=== PATIENT | male | born 1970 | race African-American/Black ===

== ENCOUNTER 2016-11-07 22:31 | Observation (INO) | payer SELFPAY ==
[~2016-11-07] VITALS: Ht 172.7 cm; Wt 65.0 kg
[2016-11-07 22:33] VITALS: BP 136/64; PULSE 100; RESP 16; TEMP 98.2; O2SAT 94
[2016-11-07] MEDS ORDERED: ASPIRIN 325 MG TAB PO ONE (23:30)
[2016-11-07] MEDS ORDERED: SODIUM CHLORID 0.9% 500 ML INJ 500 ML IV ONE (23:30)
[2016-11-07] MEDS ORDERED: MORPHINE SULFATE 4 MG/ML INJ IV PUSH ONE (23:30)
[2016-11-07 23:32] LABS: AUTOMATED NEUTROPHIL # 4.7 TH/MM3 (1.8-7.7); BASOPHIL # 0.1 TH/MM3 (0-0.2); EOSINOPHIL # 0.1 TH/MM3 (0-0.4); EOSINOPHIL % 1.1 % (0.0-4.0); HEMO FLAGS DIFF FINAL; LYMPH % 37.2 % (9.0-44.0); LYMPHOCYTE # 3.2 TH/MM3 (1.0-4.8); MEAN CELL VOLUME 93.9 FL (80.0-100.0); MEAN CORPUSCULAR HEMOGLOBIN 31.9 PG (27.0-34.0); MONO % 6.4 % (0.0-8.0); NEUT % 54.3 % (16.0-70.0); PLATELET COUNT 337 TH/MM3 (150-450); RED BLOOD COUNT 3.72 MIL/MM3 (4.50-5.90); RED CELL DISTRIBUTION WIDTH 13.3 % (11.6-17.2); WHITE BLOOD COUNT 8.6 TH/MM3 (4.0-11.0)
[2016-11-07 23:37] LABS: APTT (PATIENT) 27.6 SEC (24.3-30.1); PROTHROMBIN TIME - PATIENT 10.6 SEC (9.8-11.6)
[2016-11-07] MEDS: NITROGLYCERIN 0.4 MG SL 25 TABS/BTL SL SCH ×2 (23:39)
[2016-11-07 23:48] LABS: ANION GAP 11 MEQ/L (5-15); BICARBONATE 26.5 MEQ/L (21.0-32.0); BLOOD UREA NITROGEN 11 MG/DL (7-18); CHLORIDE 105 MEQ/L (98-107); CREATINE KINASE 256 U/L (39-308); GLOMERULAR FILTRATION RATE 105 ML/MIN (>89); MAGNESIUM 2.1 MG/DL (1.5-2.5); POTASSIUM 3.6 MEQ/L (3.5-5.1); SODIUM (NA) 142 MEQ/L (136-145)
[2016-11-08] VITALS (7 sets, daily range): BP systolic 107–124; BP diastolic 53–71; PULSE 70–81; RESP 14–20; O2SAT 95–99
[2016-11-08] LABS: CKMB 2.2 NG/ML (0.5-3.6)
--- NOTE | 2016-11-08 00:10 | RADRPT ---
EXAM DATE/TIME: 11/08/2016 00:06 [facility] COMPARISON: No previous studies available for comparison. INDICATIONS : Chest pain MEDICAL HISTORY : None. SURGICAL HISTORY : ENCOUNTER: Initial ACUITY: 1 day PAIN SCORE: 5/10 LOCATION: Bilateral chest FINDINGS: A single view of the chest demonstrates the lungs to be symmetrically aerated without evidence of mas s, infiltrate or effusion. The cardiomediastinal contours are unremarkable. There is moderate dextroconvex curvature of the thoracic spine centered around T9. CONCLUSION: No evidence of acute cardiopulmonary disease. Moderate dextroconvex scoliosis of the thoracic spine. Fredi Olivares MD on November 08, 2016 at 0:06 Board Certified Radiologist. This report was verified electronically.
[2016-11-08] MEDS: NITROGLYCERIN 0.4 MG SL 25 TABS/BTL SL SCH (00:48)
--- NOTE | 2016-11-08 00:53 | PD ---
HPI Chief Complaint: Chest Pain Time Seen by Provider: 23:07 Travel History International Travel<30 days: No Contact w/Intl Traveler<30days: No Traveled to known affect area: No History of Present Illness HPI Patient's 46 years old. He arrives with chest pain. Severity 03/17. He sat up for about 3-1/2 hours. The onset occurred while he was driving. Location is left chest and left upper extremity. He also feels it in the left upper back. He's had a fever intermittently for the past by Darvocet. He denies cough. He denies recent viral illness. His father had a coronary event at age 58. The patient smokes. He denies hypertension diabetes hyperlipidemia. He has no outside follow-up. He denies a history of catheterization or stress test. [facility] Social History Tobacco Use: Yes Allergies-Medications (Allergen,Severity, Reaction): Coded Allergies: Tylenol (Verified Allergy, Unknown, 11/07/16) Reported Meds & Prescriptions Reported Meds & Active Scripts Active No Active Prescriptions or Reported Medications Review of Systems Except as stated in HPI: all other systems reviewed are Neg Physical Exam Narrative GENERAL: 46-year-old male pleasant SKIN: Warm and dry. HEAD: Atraumatic. Normocephalic. EYES: Pupils equal and round. No scleral icterus. No injection or drainage. ENT: No nasal bleeding or discharge. Mucous membranes pink and moist. NECK: Trachea midline. No JVD. CARDIOVASCULAR: Regular rate and rhythm. No murmur appreciated. RESPIRATORY: No accessory muscle use. Clear to auscultation. Breath sounds equal bilaterally. GASTROINTESTINAL: Abdomen soft, non-tender, nondistended. Hepatic and splenic margins not palpable. MUSCULOSKELETAL: No obvious deformities. No clubbing. No cyanosis. No edema. NEUROLOGICAL: Awake and alert. No obvious cranial nerve deficits. Motor grossly within normal limits. Normal speech. PSYCHIATRIC: Appropriate mood and affect; insight and judgment normal. Data Data Last Documented VS Vital Signs Date Time Temp Pulse Resp B/P Pulse Ox O2 Delivery O2 Flow Rate FiO2 11/08/16 00:47 79 15 124/71 95 11/07/16 22:33 98.2 Orders Electrocardiogram (11/07/16 22:42) Basic Metabolic Panel (Bmp) (11/07/16 23:11) Ckmb (Isoenzyme) Profile (11/07/16 23:11) Complete Blood Count With Diff (11/07/16 23:11) Magnesium (Mg) (11/07/16 23:11) Prothrombin Time / Inr (Pt) (11/07/16 23:11) Act Partial Throm Time (Ptt) (11/07/16 23:11) Troponin I (11/07/16 23:11) Chest, Single Ap (11/07/16 23:11) Ecg Monitoring (11/07/16 23:11) Iv Access Insert/Monitor (11/07/16 23:11) Oximetry (11/07/16 23:11) Oxygen Administration (11/07/16 23:11) Westergren Sedimentation Rate (11/07/16 23:11) Aspirin (Aspirin) (11/07/16 23:30) Morphine Inj (Morphine Inj) (11/07/16 23:30) Nitroglycerin Sl (Nitrostat Sl) (11/07/16 23:30) Sodium Chlorid 0.9% 500 Ml Inj (Ns 500 M (11/07/16 23:30) CKMB (11/07/16 23:20) CKMB% (11/07/16 23:20) Activity Bed Rest With Brp (11/08/16 00:49) Vital Signs (Adult) Q4H (11/08/16 00:49) Cardiac Rhythm .As Directed (11/08/16 00:49) ^ Notify Dr: Other .PRN (11/08/16 00:49) ^ Notify Dr. Parameters (11/08/16 00:49) Resp Oxygen Nasal Cannula (11/08/16 ) Ckmb (Isoenzyme) Profile (11/08/16 00:49) Ckmb (Isoenzyme) Profile (11/08/16 03:49) Troponin I (11/08/16 00:49) Troponin I (11/08/16 03:49) Electrocardiogram (11/08/16 00:49) Electrocardiogram (11/08/16 03:49) ^ Obtain (11/08/16 00:49) Sodium Chloride 0.9% Flush (Ns Flush) (11/08/16 01:00) Sodium Chloride 0.9% Flush (Ns Flush) (11/08/16 09:00) Morphine Inj (Morphine Inj) (11/08/16 01:00) Ondansetron Inj (Zofran Inj) (11/08/16 01:00) Nitroglycerin Sl (Nitrostat Sl) (11/08/16 01:00) Aspirin (Aspirin) (11/08/16 09:00) Temazepam (Restoril) (11/08/16 01:00) Alprazolam (Xanax) (11/08/16 01:00) Chart Collector / Telemetry EMI.Q8H (11/08/16 00:49) Admit Order (Ed Use Only) (11/08/16 00:49) CKMB (11/08/16 01:50) CKMB% (11/08/16 01:50) Labs Laboratory Tests Test 11/07/16 23:20 White Blood Count 8.6 TH/MM3 Red Blood Count 3.72 MIL/MM3 Hemoglobin 11.9 GM/DL Hematocrit 35.0 % Mean Corpuscular Volume 93.9 FL Mean Corpuscular Hemoglobin 31.9 PG Mean Corpuscular Hemoglobin 34.0 % Concent Red Cell Distribution Width 13.3 % Platelet Count 337 TH/MM3 Mean Platelet Volume 7.4 FL Neutrophils (%) (Auto) 54.3 % Lymphocytes (%) (Auto) 37.2 % Monocytes (%) (Auto) 6.4 % Eosinophils (%) (Auto) 1.1 % Basophils (%) (Auto) 1.0 % Neutrophils # (Auto) 4.7 TH/MM3 Lymphocytes # (Auto) 3.2 TH/MM3 Monocytes # (Auto) 0.6 TH/MM3 Eosinophils # (Auto) 0.1 TH/MM3 Basophils # (Auto) 0.1 TH/MM3 CBC Comment DIFF FINAL Differential Comment Prothrombin Time 10.6 SEC Prothromb Time International 1.0 RATIO Ratio Activated Partial 27.6 SEC Thromboplast Time Erythrocyte Sedimentation Rate 14 mm/hr Sodium Level 142 MEQ/L Potassium Level 3.6 MEQ/L Chloride Level 105 MEQ/L Carbon Dioxide Level 26.5 MEQ/L Anion Gap 11 MEQ/L Blood Urea Nitrogen 11 MG/DL Creatinine 0.79 MG/DL Estimat Glomerular Filtration 105 ML/MIN Rate Random Glucose 85 MG/DL Calcium Level 8.2 MG/DL Magnesium Level 2.1 MG/DL Total Creatine Kinase 256 U/L Creatine Kinase MB 2.2 NG/ML Troponin I LESS THAN 0.02 NG/ML MDM Medical Decision Making Medical Screen Exam Complete: Yes Emergency Medical Condition: Yes Medical Record Reviewed: Yes Differential Diagnosis NSTEMI, unstable angina, coronary vasospasm, PE, PTX, aortic dissection, pericarditis, myocarditis, endocarditis, PNA, esophageal disease, aneurysm, musculoskeletal etiologies, anxiety, cocaine/sympathomimetic abuse Narrative Course CBC & BMP Diagram 11/07/16 23:20 Tn < 0.02 Coags normal Last 24 hours Impressions Chest X-Ray 11/07/16 2311 Signed Impressions: Service Date/Time: Tuesday, November 08, 2016 00:06 - CONCLUSION: No evidence of acute cardiopulmonary disease. Moderate dextroconvex scoliosis of the thoracic spine. Fredi Olivares MD EKG: sinus, diffuse non-specific ST elevation Chest pain center protocol considered appropriate. Diagnosis Primary Impression: Chest pain Qualified Code: R07.9 - Chest pain, unspecified type Scripts No Active Prescriptions or Reported Meds Denny Arora MD Nov 08, 2016 00:53
[2016-11-08] MEDS ORDERED: SODIUM CHLORIDE 0.9% FLUSH 5 ML FLUSH IVF PRN (01:00)
[2016-11-08] MEDS ORDERED: NITROGLYCERIN 0.4 MG SL 25 TABS/BTL SL PRN (01:00)
[2016-11-08] MEDS ORDERED: ALPRAZolam 0.25 MG TAB PO PRN (01:00)
[2016-11-08] MEDS ORDERED: TEMAZEPAM 15 MG CAP PO PRN (01:00)
[2016-11-08] MEDS ORDERED: ONDANSETRON HCL 4 MG/2 ML VIAL IV PRN (01:00)
[2016-11-08] MEDS: MORPHINE SULFATE 4 MG/ML INJ IV PRN ×2 (02:00→08:36)
[2016-11-08 02:29] LABS: CREATINE KINASE 216 U/L (39-308)
[2016-11-08 02:41] LABS: CKMB 1.4 NG/ML (0.5-3.6)
[2016-11-08 04:12] LABS: CREATINE KINASE 204 U/L (39-308)
[2016-11-08] MEDS ORDERED: SODIUM CHLORIDE 0.9% FLUSH 5 ML FLUSH IVF SCH (09:00)
[2016-11-08] MEDS ORDERED: ASPIRIN 325 MG TAB PO SCH (09:00)
[2016-11-08] MEDS ORDERED: KETOROLAC TROMETHAMINE 30 MG/ML (IVP) VIAL IVP ONE (09:00)
--- NOTE | 2016-11-08 10:17 | PD.AMA ---
Against Medical Advice Note AMA Statement Patient Sayra Jung has decided to leave the hospital against medical advice. This patient has the capacity to refuse care and understands the risks of leaving, including permanent disability and/or , and has had an opportunity to ask questions about his condition. The patient has been informed that he may return for care at any time, and follow up has been arranged/ advised. Claudio Del Toro Nov 08, 2016 10:17
--- NOTE | 2016-11-08 11:59 | MH ---
cc: WILLIE SANTAMARIA MD DATE OF ADMISSION: 11/08/2016 DATE OF 1970 CHIEF COMPLAINT Chest pain HISTORY OF PRESENT ILLNESS This is a 46-year-old male who presents to the ED via private complaining of left-sided discomfort in his chest for five hours. He was initially short of breath. No discomfort with inspiration. It is not positional. It is not exertional. He found nothing really to worsen or improve. He states he was a hospital a couple of weeks ago, but left without further treatment. He did not agree with what they were doing. Currently denies chest comfort. PAST MEDICAL HISTORY 1. Denies hypertension, hyperlipidemia, diabetes and CAD. 2. He does have tobacco abuse. FAMILY HISTORY He denies a family history of CAD. SOCIAL HISTORY The patient smokes one-half packs of cigarettes daily for more than 30 years. Denies alcohol or illicit drugs. PAST SURGICAL HISTORY Noncontributory ALLERGIES TYLENOL CAUSING A RASH. MEDICATIONS Denies REVIEW OF SYSTEMS GENERAL: Denies fevers or chills. Denies recent illness. HEENT: She denies headache, earache, sore throat or difficulty swallowing. CARDIOVASCULAR: Describes the discomfort as mentioned above. Denies diaphoresis. Denies sensation of heart beating rapidly or irregularly. Denies syncope. RESPIRATORY: He was a little short of breath initially. No inspirational chest discomfort. Denies coughing, wheezing or hemoptysis. GI: Denies nausea, vomiting, diarrhea, abdominal pain or blood in stool. MUSCULOSKELETAL: Denies joint pain or edema. Denies calf pain or edema. NEUROVASCULAR: Denies headache or dizziness. ENDOCRINE: Denies polyuria or polydipsia. HEMATOLOGIC: Denies easy bruising. SKIN: Denies rash or itching. PHYSICAL EXAMINATION VITAL SIGNS: In the emergency department initially include a blood pressure of 136/64, heart rate 100, respiration 16, pulse oximetry 94% on room air and he was afebrile. Most recent vital signs include a blood pressure 107/62, heart rate 70 respirations 20, pulse oximetry 95% on room air. GENERAL: The patient seen in the examination room in no apparent distress. He is very pleasant. He speaks in clear and sentences. HEENT: Head is atraumatic and normocephalic. NECK: Supple without lymphadenopathy. Trachea is midline. No JVD or carotid bruits. CARDIOVASCULAR: Regular rate and rhythm without gallop or rub. There is a grade 2 systolic murmur left sternal border. RESPIRATORY: Lungs are clear to auscultation bilaterally. No wheezing, rales or rhonchi. No reproducible chest wall discomfort. No use of accessory muscles. GI: Abdomen is nontender and nondistended. Bowel sounds are normal. No guarding or rebound. No obvious pulsatile mass or bruit. No CVA tenderness. Strong femoral pulses bilaterally. MUSCULOSKELETAL: Patient moving upper and lower extremity freely. No joint tenderness or edema. No calf tenderness or edema, Homans' sign. Strong pulses in the upper and lower stress. NEUROVASCULAR: The patient is alert, oriented. Cranial II-XII are grossly intact. No focal deficits and speech is clear. SKIN: No rashes. Skin turgor is normal. LABORATORY DATA CBC is essentially unremarkable. ESR is unremarkable at 14. Coagulation studies are unremarkable. A basic metabolic panel is unremarkable. Serial cardiac enzymes normal x3. Single view chest x-ray read by radiologist as no evidence of acute cardiopulmonary disease. Moderate scoliosis. EKG's have sinus rhythm with a sinus rhythm with early repolarization pattern. ASSESSMENT AND PLAN 1. Chest pain: The patient has had serial cardiac enzymes and EKG's for ruling out purposes. He has been seen by Dr. Willie Santamaria of cardiology in the chest pain center and will undergo a Lexiscan myocardial perfusion stress test and If that were to be unremarkable, he will discharged home with Instructions to follow up with a local physician. 2. Tobacco abuse: The patient has been counseled on the importance of smoking cessation. The patient is stable at this time. He is agreeable with this plan. Dictated by ALEIDA Ramsay MD BRANDON Solis/NEFTALI /11:21 AM 11:48 AM
--- NOTE | 2016-11-09 15:49 | EKG ---
Date Performed: 11/08/2016 Time Performed: 01:51:32 PTAGE: 46 years EKG: Sinus rhythm MODERATE VOLTAGE CRITERIA FOR LVH, CONSIDER NORMAL VARIANT BORDERLINE ECG INTERPRETATION BASED ON A DEFAULT AGE OF 40 YEARS PREVIOUS TRACING : 11/07/2016 23.23 DOCTOR: Conner Santamaria Interpretating Date/Time 11/09/2016 15:46:56
--- NOTE | 2016-11-09 15:49 | EKG ---
Date Performed: 11/08/2016 Time Performed: 03:10:25 PTAGE: 46 years EKG: Sinus rhythm MINIMAL VOLTAGE CRITERIA FOR LVH, CONSIDER NORMAL VARIANT BORDERLINE ECG NO PREVIOUS TRACING DOCTOR: Conner Santamaria Interpretating Date/Time 11/09/2016 15:46:47
--- NOTE | 2016-11-09 15:50 | EKG ---
Date Performed: 11/07/2016 Time Performed: 23:23:29 PTAGE: 46 years EKG: Sinus rhythm MINIMAL VOLTAGE CRITERIA FOR LVH, CONSIDER NORMAL VARIANT ST ELEVATION, PROBABLY EARLY REPOLARIZATIO N BORDERLINE ECG PREVIOUS TRACING : 11/07/2016 22.45 Since previous tracing, no significant change noted DOCTOR: Conner Santamaria Interpretating Date/Time 11/09/2016 15:47:16
--- NOTE | 2016-11-09 15:51 | EKG ---
Date Performed: 11/07/2016 Time Performed: 22:45:28 PTAGE: 46 years EKG: Sinus rhythm MINIMAL VOLTAGE CRITERIA FOR LVH, CONSIDER NORMAL VARIANT BORDERLINE ECG NO PREVIOUS TRACING DOCTOR: Conner Santamaria Interpretating Date/Time 11/09/2016 15:48:28
== END 2016-11-08 10:24 | disposition left against medical advice (07) ==
LOC: NEPE 22:31 → NEDA 11-08 00:51 → NEPGCP 11-08 05:55
PROVIDERS: ADMIT Internal Medicine Interventional Cardiology; ATTEND Internal Medicine Interventional Cardiology
DX: R07.9 Chest pain, unspecified (principal); F17.210 Nicotine dependence, cigarettes, uncomplicated; M41.9 Scoliosis, unspecified; R06.02 Shortness of breath; R01.1 Cardiac murmur, unspecified; R94.31 Abnormal electrocardiogram [ECG] [EKG]
CPT/HCPCS: 71010; 80048; 82550; 82552; 83735; 84484; 85025; 85610; 85652; 85730; 93005; 96361; 96374; 99285; G0378; J2270; J7040

== ENCOUNTER 2016-11-10 00:31 | Emergency (ER) | payer SELFPAY ==
[~2016-11-10] VITALS: Ht 170.2 cm; Wt 66.0 kg
[2016-11-10 00:35] VITALS: BP 134/84; PULSE 73; RESP 16; TEMP 98; O2SAT 96
--- NOTE | 2016-11-10 01:10 | RADRPT ---
EXAM DATE/TIME: 11/10/2016 01:00 [facility] COMPARISON: CHEST SINGLE AP, November 08, 2016, 0:06. INDICATIONS : Chest pain. MEDICAL HISTORY : None. SURGICAL HISTORY : None. ENCOUNTER: Initial ACUITY: 1 day PAIN SCORE: 4/10 LOCATION: Left chest FINDINGS: Portable AP view of the chest demonstrates a normal-sized cardiac silhouette. Lungs are underinflated . There is linear opacity in the left lower lobe that is stable. No pleural effusion, airspace consol idation, or pneumothorax is visualized. The bones and soft tissues demonstrate no acute finding. Ther e is stable dextroscoliosis of the thoracic spine. CONCLUSION: Stable chest x-ray with linear opacity in the left lower lobe most likely representing subsegmental a telectasis given the appearance. Less likely this could represent mild consolidation. Fredi Wade MD on November 10, 2016 at 1:07 Board Certified Radiologist. This report was verified electronically.
[2016-11-10 01:23] LABS: AUTOMATED NEUTROPHIL # 4.6 TH/MM3 (1.8-7.7); BASOPHIL # 0.2 TH/MM3 (0-0.2); EOSINOPHIL # 0.2 TH/MM3 (0-0.4); EOSINOPHIL % 1.9 % (0.0-4.0); HEMATOCRIT 33.6 % (39.0-51.0); HEMO FLAGS DIFF FINAL; LYMPH % 37.1 % (9.0-44.0); LYMPHOCYTE # 3.4 TH/MM3 (1.0-4.8); MEAN CELL VOLUME 93.7 FL (80.0-100.0); MEAN CORPUSCULAR HEMOGLOBIN 31.9 PG (27.0-34.0); MONO % 9.1 % (0.0-8.0); NEUT % 49.9 % (16.0-70.0); PLATELET COUNT 338 TH/MM3 (150-450); RED BLOOD COUNT 3.58 MIL/MM3 (4.50-5.90); RED CELL DISTRIBUTION WIDTH 13.1 % (11.6-17.2); WHITE BLOOD COUNT 9.3 TH/MM3 (4.0-11.0)
[2016-11-10 01:38] LABS: ANION GAP 5 MEQ/L (5-15); BICARBONATE 30.7 MEQ/L (21.0-32.0); BLOOD UREA NITROGEN 8 MG/DL (7-18); CHLORIDE 105 MEQ/L (98-107); GLOMERULAR FILTRATION RATE 151 ML/MIN (>89); POTASSIUM 3.2 MEQ/L (3.5-5.1); SODIUM (NA) 141 MEQ/L (136-145)
[2016-11-10 01:40] LABS: CREATINE KINASE 289 U/L (39-308)
[2016-11-10 05:22] VITALS: BP 134/77; PULSE 64; RESP 18; O2SAT 97
[2016-11-10] MEDS ORDERED: AZIT250T3 PO (05:37)
--- NOTE | 2016-11-10 05:37 | PD ---
HPI Chief Complaint: Chest Pain Time Seen by Provider: 05:30 Travel History International Travel<30 days: No Contact w/Intl Traveler<30days: No Traveled to known affect area: No History of Present Illness HPI 46-year-old male arrives complaining of chest pain. Onset at rest. There is radiation of left arm. Paresthesias in the left arm are reported. He was seen here yesterday for essentially same complaint of chest pain center evaluation was normal. He smokes tobacco. He has no family history of coronary artery disease. He denies a personal history of diabetes hypertension hyperlipidemia. He smokes one half pack of cigarettes per day[facility] Past Medical History Medical History: Denies Significant Hx Cardiovascular Problems: Yes Tetanus Vaccination: > 5 Years Influenza Vaccination: No Past Surgical History Surgical History: No Previous Surgery Social History Alcohol Use: No Tobacco Use: Yes (1/2 PPD) Substance Use: No Allergies-Medications (Allergen,Severity, Reaction): Coded Allergies: Tylenol (Verified Allergy, Unknown, 11/10/16) Reported Meds & Prescriptions Reported Meds & Active Scripts Active Azithromycin 250 Mg Tab 250 Mg PO DIRECTED Take 2 tabs (500 mg) on day 1 then 1 tab daily x 4 days. Review of Systems Except as stated in HPI: all other systems reviewed are Neg Physical Exam Narrative GENERAL: 46-year-old male pleasant no acute distress SKIN: Warm and dry. HEAD: Atraumatic. Normocephalic. EYES: Pupils equal and round. No scleral icterus. No injection or drainage. ENT: No nasal bleeding or discharge. Mucous membranes pink and moist. NECK: Trachea midline. No JVD. CARDIOVASCULAR: Regular rate and rhythm. No murmur appreciated. RESPIRATORY: No accessory muscle use. Clear to auscultation. Breath sounds equal bilaterally. GASTROINTESTINAL: Abdomen soft, non-tender, nondistended. Hepatic and splenic margins not palpable. MUSCULOSKELETAL: No obvious deformities. No clubbing. No cyanosis. No edema. 2+ radial artery pulses bilaterally. NEUROLOGICAL: Awake and alert. No obvious cranial nerve deficits. Motor grossly within normal limits. Normal speech. PSYCHIATRIC: Appropriate mood and affect; insight and judgment normal. Data Data Last Documented VS Vital Signs Date Time Temp Pulse Resp B/P Pulse Ox O2 Delivery O2 Flow Rate FiO2 11/10/16 05:22 64 18 134/77 97 Room Air 11/10/16 00:35 98.0 Vital signs noted Orders Electrocardiogram (11/10/16 00:42) Complete Blood Count With Diff (11/10/16 00:42) Basic Metabolic Panel (Bmp) (11/10/16 00:42) Ckmb (Isoenzyme) Profile (11/10/16 00:42) Troponin I (11/10/16 00:42) Chest, Single Ap (11/10/16 00:42) Iv Access Insert/Monitor (11/10/16 00:42) Ecg Monitoring (11/10/16 00:42) Oxygen Administration (11/10/16 00:42) Oximetry (11/10/16 00:42) CKMB (11/10/16 01:05) CKMB% (11/10/16 01:05) Labs Laboratory Tests Test 11/10/16 01:05 White Blood Count 9.3 TH/MM3 Red Blood Count 3.58 MIL/MM3 Hemoglobin 11.4 GM/DL Hematocrit 33.6 % Mean Corpuscular Volume 93.7 FL Mean Corpuscular Hemoglobin 31.9 PG Mean Corpuscular Hemoglobin 34.0 % Concent Red Cell Distribution Width 13.1 % Platelet Count 338 TH/MM3 Mean Platelet Volume 7.2 FL Neutrophils (%) (Auto) 49.9 % Lymphocytes (%) (Auto) 37.1 % Monocytes (%) (Auto) 9.1 % Eosinophils (%) (Auto) 1.9 % Basophils (%) (Auto) 2.0 % Neutrophils # (Auto) 4.6 TH/MM3 Lymphocytes # (Auto) 3.4 TH/MM3 Monocytes # (Auto) 0.8 TH/MM3 Eosinophils # (Auto) 0.2 TH/MM3 Basophils # (Auto) 0.2 TH/MM3 CBC Comment DIFF FINAL Differential Comment Sodium Level 141 MEQ/L Potassium Level 3.2 MEQ/L Chloride Level 105 MEQ/L Carbon Dioxide Level 30.7 MEQ/L Anion Gap 5 MEQ/L Blood Urea Nitrogen 8 MG/DL Creatinine 0.68 MG/DL Estimat Glomerular Filtration 151 ML/MIN Rate Random Glucose 81 MG/DL Calcium Level 8.4 MG/DL Total Creatine Kinase 289 U/L Creatine Kinase MB 2.0 NG/ML Troponin I LESS THAN 0.02 NG/ML MDM Medical Decision Making Medical Screen Exam Complete: Yes Emergency Medical Condition: Yes Medical Record Reviewed: Yes Differential Diagnosis NSTEMI, unstable angina, coronary vasospasm, PE, PTX, aortic dissection, pericarditis, myocarditis, endocarditis, PNA, esophageal disease, aneurysm, musculoskeletal etiologies, anxiety, cocaine/sympathomimetic abuse Narrative Course CBC & BMP Diagram 11/10/16 01:05 Tn < 0.02 Last 24 hours Impressions Chest X-Ray 11/10/16 0042 Signed Impressions: Service Date/Time: Thursday, November 10, 2016 01:00 - CONCLUSION: Stable chest x-ray with linear opacity in the left lower lobe most likely representing subsegmental atelectasis given the appearance. Less likely this could represent mild consolidation. Fredi Wade MD The patient is resting comfortably and feels better, is alert and in no distress. The patients results and examination findings were discussed. The repeat examination is unremarkable and benign. The history, exam, diagnostic testing, and current condition do not suggest any significant pathology to warrant further testing, continued ED treatment, admission, or surgical evaluation at this point. The vital signs have been stable. The patient does not have uncontrollable pain, intractable vomiting, or other significant symptoms. The patient's condition is stable and appropriate for discharge. The patient will pursue further outpatient evaluation with a primary care physician or other designated or consulting physician as indicated in the discharge instructions. The patient expressed understanding and was agreeable with this plan. Concern malingering/secondary gain. Diagnosis Primary Impression: PNA (pneumonia) Qualified Code: J18.1 - Pneumonia of left lower lobe due to infectious organism Additional Impressions: Hypokalemia Cervicalgia Referrals: Primary Care Physician 2 days Additional Instructions: You have a choice when it comes to health care, and we are glad that you chose [email or web address]. Hopefully, we have met your expectations on today's visit. You are welcome to return to [email or web address] at any time, as we are committed to meeting the health care needs of our community. Med/Other Pt SpecificInfo: Prescription(s) given Scripts Azithromycin 250 Mg Xgs512 Mg PO DIRECTED #6 TAB Ref 0 Take 2 tabs (500 mg) on day 1 then 1 tab daily x 4 days. Prov:Denny Arora MD 11/10/16 Disposition: DISCHARGE HOME Condition: Stable Denny Arora MD Nov 10, 2016 05:37
--- NOTE | 2016-11-10 13:54 | EKG ---
Date Performed: 11/10/2016 Time Performed: 00:52:07 PTAGE: 46 years EKG: Sinus rhythm INFEROLATERAL ST ELEVATION MOST CONSISTENT WITH REPOLARIZATION CHANGE BUT PERICARDITIS AND POSSIBLE MYOCARDIAL INJURY SHOULD BE EXCLUDED. THERE IS HOWEVER NO SIGNIFICANT SERIAL CHANGE SINCE THE MOST RE CENT EKG ABNORMAL ECG PREVIOUS TRACING : 11/08/2016 03.10 DOCTOR: Mar Villar Interpretating Date/Time 11/10/2016 13:49:50
== END 2016-11-10 06:08 | disposition home or self-care (01) ==
LOC: NEPC 00:31
DX: J18.1 Lobar pneumonia, unspecified organism (principal); E87.6 Hypokalemia; M54.2 Cervicalgia; R20.2 Paresthesia of skin; R94.31 Abnormal electrocardiogram [ECG] [EKG]; F17.200 Nicotine dependence, unspecified, uncomplicated
CPT/HCPCS: 71010; 80048; 82550; 82552; 84484; 85025; 93005